=== PATIENT | female | born 1960 | race Caucasian/White ===

== ENCOUNTER 2021-03-28 18:20 | Inpatient (IN) | payer OTHER ==
[~2021-03-28] VITALS: Ht 165.1 cm; Wt 90.3 kg
[2021-03-28 19:06] LABS: HEMOGLOBIN 15.7 gm/dl (12.3-15.3); RED BLOOD COUNT 5.01 M/UL (4.00-5.10); WHITE BLOOD COUNT 4.5 K/UL (4.5-11.0)
[2021-03-29 06:31] LABS: HEMOGLOBIN 15.1 gm/dl (12.3-15.3); RED BLOOD COUNT 4.85 M/UL (4.00-5.10)
[2021-03-29 06:47] LABS: WHITE BLOOD COUNT 3.3 K/UL (4.5-11.0)
[2021-03-29 06:53] LABS: BUN/CREATININE RATIO 13 (0-10)
[2021-03-29] MEDS ORDERED: PERCOCET 5-3251 EACH PO (07:39)
[2021-03-29] MEDS ORDERED: PROAIR HFA8.5 GM INH (07:42)
[2021-03-30 04:28] LABS: HEMOGLOBIN 14.9 gm/dl (12.3-15.3); RED BLOOD COUNT 4.85 M/UL (4.00-5.10)
[2021-03-30 04:45] LABS: BUN/CREATININE RATIO 16 (0-10)
[2021-03-31 06:22] LABS: HEMOGLOBIN 14.3 gm/dl (12.3-15.3); RED BLOOD COUNT 4.7 M/UL (4.00-5.10)
[2021-03-31 06:25] LABS: WHITE BLOOD COUNT 6.6 K/UL (4.5-11.0)
[2021-03-31 06:31] LABS: BUN/CREATININE RATIO 22 (0-10)
[2021-04-01 05:26] LABS: HEMOGLOBIN 13.8 gm/dl (12.3-15.3); RED BLOOD COUNT 4.51 M/UL (4.00-5.10); WHITE BLOOD COUNT 6.5 K/UL (4.5-11.0)
[2021-04-01 05:54] LABS: BUN/CREATININE RATIO 21 (0-10)
[2021-04-01] MEDS ORDERED: BUDESONIDE0.5 MG/2 M NEB (13:42)
[2021-04-01] MEDS ORDERED: IPRAT-ALBUT 0.5-3 ML NEB (13:42)
[2021-04-01] MEDS ORDERED: BENZONATATE100 MG PO (13:42)
[2021-04-01] MEDS ORDERED: PROTONIX 40 MG40 M1 PO (13:42)
[2021-04-01] MEDS ORDERED: DEXAMETHASONE6 MG PO (13:47)
[2021-04-01] MEDS ORDERED: GLUCOPHAGE850 MG PO (13:47)
[2021-04-01] MEDS ORDERED: ELIQUIS 2.5 MG2.5 MG PO (13:50)
== END 2021-04-01 17:28 | disposition home or self-care (01) | DRG 177 ==
LOC: ER1 18:20 → MED SURG 4 21:10 → CDU 21:10 → MED SURG 4 03-29 13:56
PROVIDERS: Emergency Medicine; Internal Medicine; ADMIT Internal Medicine
PROC: XW033E5 Introduction of Remdesivir Anti-infective into Peripheral Vein, Percutaneous Approach, New Technology Group 5 (ICD-10-PCS; principal; 2021-03-28)
PROC: 8E0ZXY6 Isolation (ICD-10-PCS; 2021-03-29)
DX: U07.1 COVID-19 (principal); J12.82 Pneumonia due to coronavirus disease 2019; J96.01 Acute respiratory failure with hypoxia; E66.01 Morbid (severe) obesity due to excess calories; E86.0 Dehydration; E11.9 Type 2 diabetes mellitus without complications; Z79.4 Long term (current) use of insulin; Z68.30 Body mass index [BMI] 30.0-30.9, adult; Z83.3 Family history of diabetes mellitus; Z91.14 Patient's other noncompliance with medication regimen
CPT/HCPCS: 36415; 36600; 71045; 80048; 80053; 82550; 82553; 82728; 82803; 82962; 83615; 83874; 83880; 84484; 85025; 85027; 85379; 86140; 93005; 94640; 94664; 94760; 99285; C9113; J0696; J1100; J1650; J7030; Q9967; U0002

== ENCOUNTER → 2021-05-17 | Outpatient (CLI) | payer OTHER ==
[~2021-05-17] MED LIST: BENZONATATE100 MG PO; BUDESONIDE0.5 MG/2 M NEB; DEXAMETHASONE6 MG PO; ELIQUIS 2.5 MG2.5 MG PO; GLUCOPHAGE850 MG PO; IPRAT-ALBUT 0.5-3 ML NEB; PERCOCET 5-3251 EACH PO; PROAIR HFA8.5 GM INH; PROTONIX 40 MG40 M1 PO
== END ==
LOC: EXRD 15:40
DX: Z09 Encounter for follow-up examination after completed treatment for conditions other than malignant neoplasm (principal); Z86.16 Personal history of COVID-19
CPT/HCPCS: 71046